=== PATIENT | female | born 1940 | race Caucasian/White ===

== ENCOUNTER 2017-06-03 10:17 | Emergency (ER) | payer MEDICARE, BC ==
[~2017-06-03] VITALS: Ht 170.2 cm; Wt 68.2 kg
[~2017-06-03 10:17] MED LIST: ASPIRIN 81M81 MG/TA2 PO; COENZYME Q-10100 M1 PO; D-MANNOSE PO; NITROSTAT0.4 MG/TAB SL; OMEGA-31 SGL PO; PROBIOTIC-MAJOR PO; TOPROL XL 25MG25 MG PO; VITAMIN D31000 I1 PO; VITAMIN D31000 IU PO
[2017-06-03 10:20] VITALS: BP 139/63; PULSE 68; TEMP 98
[2017-06-03] MEDS ORDERED: UREX1 GM PO (10:24)
[2017-06-03] MEDS ORDERED: CARDIZEM120 MG PO (10:24)
[2017-06-03] MEDS ORDERED: CIPRO 500MG TA500 MG PO (11:24)
[2017-06-03] MEDS ORDERED: FLAGYL500 MG PO (11:24)
== END 2017-06-03 11:40 | disposition home or self-care (01) ==
LOC: COL.ER 10:17
DX: K57.92 Diverticulitis of intestine, part unspecified, without perforation or abscess without bleeding (principal)

== ENCOUNTER → 2017-07-08 | Outpatient (CLI) | payer MEDICARE, BC ==
[~2017-07-08] MED LIST changes: +CARDIZEM120 MG PO; +CIPRO 500MG TA500 MG PO; +FLAGYL500 MG PO; +UREX1 GM PO
== END ==
LOC: MC.RAD 09:12
DX: Z12.31 Encounter for screening mammogram for malignant neoplasm of breast (principal)

== ENCOUNTER → 2018-09-15 | Outpatient (CLI) | payer MEDICARE, BC | LOC: MC.RAD 08:25 | DX: Z12.31 Encounter for screening mammogram for malignant neoplasm of breast (principal) ==

== ENCOUNTER → 2019-09-17 | Outpatient (CLI) | payer MEDICARE, BC | LOC: MC.RAD 15:29 | DX: Z12.31 Encounter for screening mammogram for malignant neoplasm of breast (principal) ==